=== PATIENT | female | born 1955 | race Caucasian/White ===

== ENCOUNTER 2016-10-26 12:32 | Inpatient (IN) | payer OTHER ==
[~2016-10-26] VITALS: Ht 172.7 cm; Wt 108.9 kg
--- NOTE | 2016-10-26 12:37 | NUR ---
TRIAGE; PT TO ED WITH HIGH BP. STATES WENT TO HER DOCTOR YESTERDAY AND ADDED A NEW MEDICINE YESTERDAY. STATES LATELY HER PRESSURES HAVE BEEN HIGHER. DENIES ANY CP/SOB. DENIES ANY NAUSEA OR LIGHTHEADEDNESS.
--- NOTE | 2016-10-26 13:41 | NUR ---
PT AMBULATORY TO ROOM 7
--- NOTE | 2016-10-26 13:47 | NUR ---
MEDICAL STUDENT AT BEDSIDE FOR EVAL.
[2016-10-26] MEDS ORDERED: LISINOPRIL-HCT1 EAC1 PO (14:04)
[2016-10-26] MEDS ORDERED: LISINOPRIL20 M1 PO (14:04)
[2016-10-26] MEDS ORDERED: AMLODIPINE BESYL5 M1 PO (14:05)
--- NOTE | 2016-10-26 14:38 | NUR ---
BLOOD DRAWN AND SENT TO THE LAB (2 SST,LAV,BLUE,PINK,[facility])
[2016-10-26 14:42] LABS: ABSOLUTE BASOPHIL COUNT 0.1 /CUMM (0.0-0.2); ABSOLUTE EOSINOPHIL COUNT 0.1 /CUMM (0.0-0.7); ABSOLUTE GRANULOCYTE CT 9.2 /CUMM (1.4-6.5); ABSOLUTE LYMPH COUNT 2.6 /CUMM (1.2-3.4); ABSOLUTE MONOCYTE COUNT 0.6 /CUMM (0.10-0.60); BASOPHIL % 0.4 % (0.0-2.0); EOSINOPHIL % 0.5 % (0-5); GRANULOCYTE % 73.7 % (42.2-75.2); HEMATOCRIT 39.2 % (37-47); MEAN CORPUSCULAR HGB 30.5 PG (27.0-31.0); MEAN CORPUSCULAR HGB CONC 34.2 G/DL (33.0-37.0); MEAN CORPUSCULAR VOLUME 89.2 FL (81.0-99.0); MEAN PLATELET VOLUME 8.3 FL (7.4-10.4); PLATELET COUNT 270 /CUMM (130-400); RBC DISTRIBUTION WIDTH 13.3 % (11.5-14.5); RED BLOOD CELL CT 4.39 /CUMM (4.20-5.40); WHITE BLOOD CELL COUNT 12.6 /CUMM (4.8-10.8)
--- NOTE | 2016-10-26 15:36 | NUR ---
DR. POTTS AT BEDSIDE TO DISCUSS POC.
--- NOTE | 2016-10-26 15:41 | ED GENERAL ADULT ---
History of Present Illness General Chief Complaint: General Adult Stated Complaint: HIGH BLOOD PRESSURE,FEELS FLUSHED,STARTED MED YEST Source: patient, family, old records Exam Limitations: no limitations Vital Signs & Intake/Output Vital Signs & Intake/Output Vital Signs Date Time Temp Pulse Resp B/P Pulse O2 O2 Flow FiO2 Ox Delivery Rate 10/26 1642 98.9 65 15 138/60 94 Room Air Room Air 10/26 1437 Room Air Room Air 10/26 1436 18 184/70 10/26 1236 97.7 64 16 190/77 97 Room Air Allergies Coded Allergies: No Known Allergies (10/26/16) Reconcile Medications Amlodipine Besylate 5 MG TABLET 1 TAB PO DAILY BP (Reported) Lisinopril 20 MG TABLET 40 MG PO EOD BP (Reported) Lisinopril/Hydrochlorothiazide (Lisinopril-Hctz 20-25 MG Tab) 20 MG-25 MG TABLET 2 TAB PO EOD BP (Reported) Triage Note: TRIAGE; PT TO ED WITH HIGH BP. STATES WENT TO HER DOCTOR YESTERDAY AND ADDED A NEW MEDICINE YESTERDAY. STATES LATELY HER PRESSURES HAVE BEEN HIGHER. DENIES ANY CP/SOB. DENIES ANY NAUSEA OR LIGHTHEADEDNESS. Triage Nurses Notes Reviewed? yes Onset: Just prior to arrival Duration: day(s):, constant, continues in ED Timing: recent history Injury Environment: home Severity: moderate No Modifying Factors: none LMP (ages 10-50): post menopausal : No Patient currently breastfeeds: No HPI: Several days prior to admission patient complains of frequent loose watery stool loss of appetite increasing weakness. Blood pressure was noted to be elevated amlodipine started yesterday. Prior to admission she still fill her blood pressure was elevated. She denies fever chills nausea vomiting abdominal pain chest pain cough shortness of breath headache dysuria rash bleeding. Past History Travel History Traveled to [place] past 21 day No Medical History Any Pertinent Medical History? see below for history Cardiovascular: hypertension Psychiatric: anxiety Surgical History Surgical History: non-contributory Psychosocial History What is your primary language Maltese Tobacco Use: Never used Family History Hx Contributory? No Review of Systems Review of Systems Constitutional: Reports: see HPI, weakness. EENTM: Reports: no symptoms. Respiratory: Reports: no symptoms. Cardiovascular: Reports: no symptoms. GI: Reports: see HPI, diarrhea. Genitourinary: Reports: no symptoms. Musculoskeletal: Reports: no symptoms. Skin: Reports: no symptoms. Neurological/Psychological: Reports: see HPI, anxiety. Hematologic/Endocrine: Reports: no symptoms. Immunologic/Allergic: Reports: no symptoms. All Other Systems: Reviewed and Negative Physical Exam Physical Exam General Appearance: well developed/nourished, alert, awake, anxious, mild distress, obese Head: atraumatic, normal appearance Eyes: Bilateral: normal appearance, PERRL, EOMI. Ears, Nose, Throat: normal pharynx, normal ENT inspection, hearing grossly normal Neck: normal inspection, supple, full range of motion, no midline tenderness Respiratory: normal breath sounds, chest non-tender, no respiratory distress, quiet respiration, lungs clear Cardiovascular: normal peripheral pulses, irregularly irregular, norml femoral pulses equa Peripheral Pulses: 4+ carotid (R), 4+ carotid (L) Gastrointestinal: normal bowel sounds, soft, non-tender, no organomegaly Back: normal inspection, normal range of motion Extremities: normal inspection, normal capillary refill, normal range of motion, no edema Neurologic/Psych: no motor/sensory deficits, awake, alert, oriented x 3, normal gait, corporation officer II-XII nml as tested Reflexes: 2+: bicep (R), bicep (L). Skin: intact, normal color, cyanosis Lymphatic: no anterior cervical bradford Core Measures ACS in differential dx? No CVA/TIA Diagnosis: No Severe Sepsis Present: No Septic Shock Present: No Progress Differential Diagnoses I considered the following diagnoses in my evaluation of the patient: Hypertension electrolyte abnormality gastroenteritis dehydration Plan of Care: Orders Procedure Date/time Status Regular Diet 10/26 D Active Patient Data 10/26 1559 Active OXYGEN SETUP (GEN) 10/26 1532 Active Saline Lock 10/26 1532 Active Admit to inpatient 10/26 1532 Active Vital Signs 10/26 1532 Active Activity/Ambulation 10/26 1532 Active Code Status 10/26 1532 Active Intake & Output 10/26 1439 Active URINALYSIS 10/26 1401 Complete TSH REFLEX 10/26 1401 Complete TROPONIN LEVEL 10/26 1401 Complete COMPREHENSIVE METABOLIC PANEL 10/26 1401 Complete CBC WITHOUT DIFFERENTIAL 10/26 1401 Complete EKG 10/26 1401 Active Laboratory Tests 10/26/16 1545: Urine Color STRAW, Urine Clarity CLEAR, Urine pH 6.0, Ur Specific [place] <= 1.005, Urine Protein NEG, Urine Ketones NEG, Urine Nitrite NEG, Urine Bilirubin NEG, Urine Urobilinogen 0.2, Ur Leukocyte Esterase NEG, Ur Microscopic SEDIMENT EXAMINED, Urine RBC RARE, Urine WBC RARE, Ur Epithelial Cells RARE, Urine Bacteria RARE H, Urine Hemoglobin MOD H, Urine Glucose NEG 10/26/16 1434: Anion Gap 13, Estimated GFR > 60, BUN/Creatinine Ratio 14.3, Glucose 152 H, Calcium 9.6, Total Bilirubin 1.9 H, AST 29, ALT 49, Alkaline Phosphatase 70, Troponin I < 0.01, Total Protein 7.7, Albumin 4.1, Globulin 3.6, Albumin/ Globulin Ratio 1.1, TSH &T3 &Free T4 Intrp 0.946, CBC w Diff NO MAN DIFF REQ, RBC 4.39, MCV 89.2, MCH 30.5, RDW 13.3, MPV 8.3, Gran % 73.7, Lymphocytes % 21.0 , Monocytes % 4.4, Eosinophils % 0.5, Basophils % 0.4, Absolute Granulocytes 9.2 H, Absolute Lymphocytes 2.6, Absolute Monocytes 0.6, Absolute Eosinophils 0.1, Absolute Basophils 0.1, PUBS MCHC 34.2 Initial ED EKG: normal axis, normal intervals, normal p-waves, normal QRS complex, nonspecific ST T wave chg Rhythm Strip: normal sinus rhythm Departure Departure Disposition: STILL A PATIENT Condition: Stable Clinical Impression Primary Impression: Hyponatremia syndrome Secondary Impressions: Anxiety Diarrhea Qualifiers: Diarrhea type: unspecified type Qualified Code: R19.7 - Diarrhea, unspecified Hypertension Qualifiers: Hypertension type: unspecified secondary hypertension Qualified Code: I15.9 - Secondary hypertension, unspecified Referrals: LANDEN LOWRY MD (PCP/Family) Departure Forms: Customer Survey General Discharge Information Admission Note Spoke With: MARIANO CHAPA MD Documentation of Exam: Documentation of any treatments & extenuating circumstances including Concerns Regarding Discharge (functional status, medication knowledge or non-compliance, living conditions, etc.) that warrant an admission rather than observation: serial lab exam IV hydration medication adjustment cardiac monitoring continuing care discharge planning Critical Care Note Critical Care Note Critical Care Time: non-applicable
--- NOTE | 2016-10-26 15:51 | NUR ---
URINE TRIO SENT TO LAB NOW.
--- NOTE | 2016-10-26 16:12 | NUR ---
PT MEDICATED WITH XANAX PER EMAR. TOLERATED WELL. PT EDUCATED ABOUT XANAX.
--- NOTE | 2016-10-26 16:31 | NUR ---
FOOD TRAY ORDERED FOR PT.
--- NOTE | 2016-10-26 16:35 | NUR ---
DR. CHAPA AT BEDSIDE FOR EVAL.
--- NOTE | 2016-10-26 16:35 | NUR ---
REPORT GIVEN TO AMER[facility] SPENCE.
--- NOTE | 2016-10-26 17:13 | History & Physical ---
See Addendum BOSSMAN WANG 10/26/16 1713: General Information and HPI MD Statement: I have seen and personally examined CARMELLA VILLA and documented this H&P. The patient is a 61 year old F who presented with a patient stated chief complaint of [facial flushing, anxiety and elevated blood pressure]. Source of Information: patient Exam Limitations: no limitations History of Present Illness: Mrs Orona is a 61-year-old lady with a PMH of HTN noncompliant on medication , peripheral vascular disease complicated with left lower extremity ulcer, anxiety who presents with complaints of facial flushing. She reports a long-standing history of elevated blood pressure, prescribed HCTZ and lisinopril for which she acknowledges being noncompliant on.during her recent visit to follow-up with her PCP from Dr. Lowry, SBP was noted to be in the 180s for which she was started on amlodipine 5 mg daily. She reports taking 2 doses of amlodipine and woke up this morning to find her face flushed. She also endorses significant amount of family stressors that are causing her excessive anxiety. ROS: She endorses intermittent headaches whenever her blood pressure is elevated , difficulty sleeping, decrease in oral intake over the past 10 days, 2 episodes of diarrhea, sadness, loss of interest in certain activities, guilty feeling, lack of energy and inability to concentrate. Allergies/Medications Allergies: Coded Allergies: No Known Allergies (10/26/16) Home Med list Amlodipine Besylate 5 MG TABLET 1 TAB PO DAILY BP (Reported) Lisinopril 20 MG TABLET 40 MG PO EOD BP (Reported) Lisinopril/Hydrochlorothiazide (Lisinopril-Hctz 20-25 MG Tab) 20 MG-25 MG TABLET 2 TAB PO EOD BP (Reported) Past History Travel History Traveled to [place] past 21 day No Medical History Cardiovascular: hypertension Psychiatric: anxiety Surgical History Surgical History: non-contributory Past Family/Social History Psychosocial History Where do you live? Home Who Do You Live With? spouse Services at Home: None Primary Language: Frisian Smoking Status: Never Smoked ETOH Use: denies use Review of Systems Review of Systems Constitutional: Reports: see HPI. EENTM: Reports: no symptoms. Cardiovascular: Reports: no symptoms. Respiratory: Reports: no symptoms. GI: Reports: see HPI. Genitourinary: Reports: no symptoms. Musculoskeletal: Reports: see HPI. Skin: Reports: no symptoms. Neurological/Psychological: Reports: see HPI. Exam & Diagnostic Data Last 24 Hrs of Vital Signs/I&O Vital Signs Date Time Temp Pulse Resp B/P Pulse O2 O2 Flow FiO2 Ox Delivery Rate 10/26 1757 97.9 60 16 115/76 96 Room Air 10/26 1642 98.9 65 15 138/60 94 Room Air Room Air 10/26 1437 Room Air Room Air 10/26 1436 18 184/70 10/26 1236 97.7 64 16 190/77 97 Room Air Intake & Output 10/26 1600 10/26 0800 10/26 0000 Intake Total 0 Output Total Balance 0 Intake, Oral 0 Physical Exam General Appearance Alert, Cooperative, SLighty anxious appearing Skin DIstal left leg appears to have chronic venous insufficency changes HEENT EOMI, Mucous Membr. moist/pink Cardiovascular Regular Rate, Normal S1, Normal S2 Lungs Clear to Auscultation, Normal Air Movement Abdomen Normal Bowel Sounds, Soft, No Tenderness Neurological Normal Speech, Normal Tone, Sensation Intact Extremities Normal Pulses, 1+ pitting edema BL LE Vascular Pulses Symmetrical Last 24 Hrs of Labs/Kevon: Laboratory Tests 10/26/16 1545: Urine Color STRAW, Urine Clarity CLEAR, Urine pH 6.0, Ur Specific [place] <= 1.005, Urine Protein NEG, Urine Ketones NEG, Urine Nitrite NEG, Urine Bilirubin NEG, Urine Urobilinogen 0.2, Ur Leukocyte Esterase NEG, Ur Microscopic SEDIMENT EXAMINED, Urine RBC RARE, Urine WBC RARE, Ur Epithelial Cells RARE, Urine Bacteria RARE H, Urine Hemoglobin MOD H, Urine Glucose NEG 10/26/16 1434: Anion Gap 13, Estimated GFR > 60, BUN/Creatinine Ratio 14.3, Glucose 152 H, Calcium 9.6, Total Bilirubin 1.9 H, AST 29, ALT 49, Alkaline Phosphatase 70, Troponin I < 0.01, Total Protein 7.7, Albumin 4.1, Globulin 3.6, Albumin/ Globulin Ratio 1.1, TSH &T3 &Free T4 Intrp 0.946, CBC w Diff NO MAN DIFF REQ, RBC 4.39, MCV 89.2, MCH 30.5, RDW 13.3, MPV 8.3, Gran % 73.7, Lymphocytes % 21.0 , Monocytes % 4.4, Eosinophils % 0.5, Basophils % 0.4, Absolute Granulocytes 9.2 H, Absolute Lymphocytes 2.6, Absolute Monocytes 0.6, Absolute Eosinophils 0.1, Absolute Basophils 0.1, PUBS MCHC 34.2 Diagnostic Data EKG Results Sinus tachycardia, HR 105. Multiform ventricular premature complexes. LVH with secondary repolarization of normality. OK interval 170. QTC 476 Assessment/Plan Assessment: 61-year-old lady with a PMH of HTN noncompliant on medication, peripheral vascular disease complicated with left lower extremity ulcer, anxiety who presents with complaints of facial flushing. Patient endorses significant amount of anxiety at baseline and noncompliance with her blood pressure regimen. VS on admission: BP 190/77, HR 64, RR 16, SPO2 97% on RA, T 97.7 Pertinent labs: WBC 12.6, H&H 13.6/39.2, platelets 270K, sodium 122, potassium 3.2, chloride 82, bicarbonate 27, BUN/CR 10/0.7, glucose 112 T bili: 1.9 Problem list: 1. Hypertensive urgency 2. Facial flushing 3. Hyponatremia 4. Hypokalemia 5. Hypochloremia 6. Anxiety 7. Peripheral vascular disease Plan: 1. Hypertensive urgency * Admit to general medicine floor * There appear to be some discrepancies between the patient's medication list and the medication claim history with regards to her antihypertensive regimen. She reports currently being on lisinopril 40 mg daily, HCTZ 50 mg daily and amlodipine 5 mg daily. Additionally, in the setting of medication noncompliance the patient may not be able to tolerate restarting all these medications at the current dose * Despite no antihypertensive administered since admission her blood pressure has dropped from SBP 190s to 115. This could likely be secondary to the 1 mg dose of alprazolam that she did received for anxiety * Will restart her on lisinopril 40 mg. we'll hold off amlodipine due to potential side effects of flushing and HCTZ due to potential cause of hyponatremia * Consider starting the patient on Lopressor if blood pressure remains uncontrolled with target BP <150/90 per JNC 8 guidelines 2. Hyponatremia * This could be secondary to thiazide use. Unlikely to be SIADH as patient is not on any medications that could cause this * We'll follow-up serum osmolality, urine lites * If serum osmolality is low, fluid restriction of 1000ml/24hr, repeat BEP Q12 3. Hypokalemia * Hypokalemia: Repleted with K Scott 60mEg X1. Follow-up magnesium and phosphorus levels and supplement as warranted 4. Hypochloremia * This may also be secondary to thiazide use * We'll follow-up repeat while holding off diuretics 5. Anxiety * PRN xanax for symptomatic control tonight * Psychiatry consult in the a.m. * Follow-up thyroid function studies 6. Peripheral vascular disease * Follow-up lipid profile in the a.m * Patient may benefit from statin if elevated ASCVD score * Patient may also benefit from aspirin 81 mg 7. Diet * Heart healthy diet 8. DVT prophylaxis * DVT prophylaxis: Lovenox 40 mg subcutaneous daily 9. CODE STATUS * Full code FOLLOW UP: * BEP at 2300 hrs. * Magnesium, phosphorus * Serum osmolality, urine lites * Lipid panel in the a.m. * Psychiatry consult in the a.m.: Progressive anxiety * Obtain records from patient's PCP to get baseline sodium, potassium As Ranked By This Provider Problem List: 1. Hypertensive urgency 2. Hyponatremia syndrome 3. Hypokalemia 4. Hypochloremia 5. Anxiety 6. PVD (peripheral vascular disease) Core Measures/Miscellaneous Acute Coronary Syndrome ACS Diagnosis: No Cerebrovascular Accident CVA/TIA Diagnosis: No Congestive Heart Failure CHF Diagnosis: No Venous Thromboembolism VTE Risk Factors: Age > 40 No [facility] VTE prophylaxis d/t: No contraindications No VTE Pharm Prophylaxis d/t: No contraindications VTE Diagnosis: No VTE Type: NONE VTE Confirmed by (Test): NONE Severe Sepsis Severe Sepsis Present: No Septic Shock Septic Shock Present: No Miscellaneous Documentation Attending Case Discussed With: MARIANO CHAPA MD Primary Care Physician: LANDEN LOWRY MD Patient sees these Specialists NA Level of Patient Care: General Medicine Resident Review Statement Resident Statement: examined this patient, discussed with internet marketing consultant, agreed with internet marketing consultant, reviewed EMR data (avail), discussed with nursing, reviewed images MARIANO CHAPA MD 10/26/163: Attending Review Statement Attending Statement Attending MD Statement: examined this patient, discuss w/resident/PA/STORE OPERATIONS SPECIALIST, agreed w/resident/PA/STORE OPERATIONS SPECIALIST, reviewed EMR data (avail) Attending Assessment/Plan: 61F admitted for hypertension and sodium 122. Patient reprots depression and severe anxiety for the past week with decreased PO intake and loose stools, had been on Lisinopril and HCTZ, started Amlodipine by her PCP yesterday. No other symptoms, neuro exam normal. Will check urine sodium and osmolaliaty, serum osmolality, urine creatinine, urine toxicology, give normal saline, hold HCTZ and Amlodipine, consider nephrology consult if no improvement. Speak with PCP and get full records and medications history. DVT PPx
[2016-10-26 17:57] VITALS: BP 115/76
--- NOTE | 2016-10-26 21:16 | Admission Certification ---
Admission Certification Certification Statement - As attending physician, I certify that at the time of - admission, based on clinical presentation, severity of - symptoms, need for further diagnostic testing and - therapeutic interventions, and risk of adverse outcomes - without in-hospital treatment, in my clinical assessment, - this patient requires an acute hospital stay for a minimum - of two nights or longer. I have also considered psychsocial - factors such as support system, advanced age, financial - issues, cognitive issues, and failed out-patient treatments, - past re-admission history, safety of patient, and lack of - compliance as applicable. Specific rationale supporting this admission is: Sodium 122, BP 190/90, questionable confusion
[2016-10-26 23:00] VITALS: BP 118/64
[2016-10-27 00:50] VITALS: BP 102/56
--- NOTE | 2016-10-27 07:54 | PN- Housestaff ---
ANDRE STEINER,VINNIE 10/27/16 0740: Subjective Follow-up For: Hyponatremia Hypokalemia Hypertensive urgency Tele-Events Since Last Visit: SB 50-65 Subjective: Pt c/o anxiety, but she slept well overnight. She didn't have any flushing sensation / headache. She denies chest pain/shortness of breath. She was not drinking much water at baseline, and she had HTCTZ. Review of Systems Constitutional: Denies: chills, fever, weakness. EENTM: Reports: no symptoms. Cardiovascular: Denies: chest pain, orthopena, palpitations, peripheral edema. Respiratory: Denies: cough, short of breath, wheezing. Gastrointestinal: Reports: no symptoms. Genitourinary: Reports: no symptoms. Musculoskeletal: Reports: no symptoms. Skin: Reports: lesions. Neurological/Psychological: Reports: anxiety. Denies: headache, numbness, tremors. Hematologic/Endocrine: Reports: no symptoms. Immunologic/Allergic: Reports: no symptoms. Objective Last 24 Hrs of Vital Signs/I&O Vital Signs Date Time Temp Pulse Resp B/P Pulse O2 O2 Flow FiO2 Ox Delivery Rate 10/26 2341 68 118/64 10/26 2300 99.0 72 18 118/64 96 Room Air 10/26 1757 97.9 60 16 115/76 96 Room Air 10/26 1642 98.9 65 15 138/60 94 Room Air Room Air 10/26 1437 Room Air Room Air 10/26 1436 18 184/70 10/26 1236 97.7 64 16 190/77 97 Room Air Intake & Output 10/27 0800 10/27 0000 10/26 1600 Intake Total 600 800 0 Output Total Balance 600 800 0 Intake, Oral 600 800 0 Patient 240 lb Weight Physical Exam General Appearance: Alert, Oriented X3, Cooperative, No Acute Distress Skin: bilateral multiple psoriatic skin lesions on arms, legs HEENT: Atraumatic, EOMI, Mucous Membr. moist/pink Neck: Supple, No JVD, No LAD, obese Lymphatic: Cervical nl Cardiovascular: Regular Rate, Normal S1, Normal S2, No Murmurs Lungs: Clear to Auscultation, Normal Air Movement Abdomen: Normal Bowel Sounds, Soft, No Tenderness Neurological: Normal Gait, Normal Speech, Strength at 5/5 X4 Ext, Normal Tone, Sensation Intact, Cranial Nerves 3-12 NL Extremities: No Edema, Normal Pulses, No Tenderness/Swelling Vascular: Normal Pulses, Pulses Symmetrical Current Medications: Current Medications Sig/Hugh Start time Last Medication Dose Route Stop Time Status Admin Acetaminophen 650 MG Q6P PRN 10/26 181 AC PO Alprazolam 0.5 MG 2200 PRN 10/26 220 AC PO 11/02 2159 Alprazolam 0 .STK-MED ONE 10/26 1607 DC PO Alprazolam 1 MG ONCE ONE 10/26 1515 DC 10/26 PO 10/26 1516 1612 Amlodipine Besylate 5 MG DAILY 10/27 1000 CAN PO Enoxaparin Sodium 40 MG DAILY 10/26 1812 AC 10/26 SC 2341 Hydrochlorothiazide 25 MG DAILY 10/27 1000 CAN PO Lisinopril 40 MG Q48H 10/26 220 AC PO Magnesium Oxide 800 MG ONE ONE 10/27 0700 DC PO 10/27 0701 Oxycodone/ 1 TAB Q6P PRN 10/26 181 AC Acetaminophen PO Oxycodone/ 2 TAB Q6P PRN 10/26 1815 AC Acetaminophen PO Potassium Chloride 60 MEQ ONCE ONE 10/26 1700 DC 10/26 PO 10/26 1701 1749 Sodium Chloride 1,000 ML BOLUS ONE 10/26 1545 DC 10/26 IV 10/26 1644 1628 Last 24 Hrs of Lab/Kevon Results Last 24 Hrs of Labs/Mics: Laboratory Tests 10/27/16 0610: Sodium Pending, Potassium Pending, Chloride Pending, Carbon Dioxide Pending, Anion Gap Pending, BUN Pending, Creatinine Pending, BUN/Creatinine Ratio Pending , Serum Osmolality Pending, Triglycerides Pending, Cholesterol Pending, LDL Cholesterol, Calc Pending, HDL Cholesterol Pending, Cholesterol/HDL Ratio Pending, TSH Pending, Free T4 Pending, CBC w Diff Pending, WBC Pending, RBC Pending, Hgb Pending, Hct Pending, MCV Pending, MCH Pending, RDW Pending, Plt Count Pending, MPV Pending, PUBS MCHC Pending 10/26/16 2259: Anion Gap 8, Estimated GFR 56 L, BUN/Creatinine Ratio 12.0 10/26/16 1545: Urine Color STRAW, Urine Clarity CLEAR, Urine pH 6.0, Ur Specific [place] <= 1.005, Urine Protein NEG, Urine Ketones NEG, Urine Nitrite NEG, Urine Bilirubin NEG, Urine Urobilinogen 0.2, Ur Leukocyte Esterase NEG, Ur Microscopic SEDIMENT EXAMINED, Urine RBC RARE, Urine WBC RARE, Ur Epithelial Cells RARE, Urine Bacteria RARE H, Urine Hemoglobin MOD H, Urine Glucose NEG 10/26/16 1545: Urine Opiates Screen < 100.00, Methadone Screen < 40, Barbiturate Screen < 60, Ur Phencyclidine Scrn < 6.00, Amphetamines Screen < 100, U Benzodiazepines Scrn < 85, Urine Cocaine Screen < 50, Urine Cannabis Screen < 5.00, Urine Osmolality 103 L, Ur Random Creatinine 12.0, Ur Random Sodium 25 L, Ur Random Potassium 4.1, Fraction Sodium Excret 1.2 H 10/26/16 1434: Anion Gap 13, Estimated GFR > 60, BUN/Creatinine Ratio 14.3, Glucose 152 H, Serum Osmolality 252 L, Calcium 9.6, Phosphorus 3.0, Magnesium 1.5 L, Total Bilirubin 1.9 H, AST 29, ALT 49, Alkaline Phosphatase 70, Troponin I < 0.01, Total Protein 7.7, Albumin 4.1, Globulin 3.6, Albumin/Globulin Ratio 1.1, TSH & T3 &Free T4 Intrp 0.946, CBC w Diff NO MAN DIFF REQ, RBC 4.39, MCV 89.2, MCH 30.5, RDW 13.3, MPV 8.3, Gran % 73.7, Lymphocytes % 21.0, Monocytes % 4.4, Eosinophils % 0.5, Basophils % 0.4, Absolute Granulocytes 9.2 H, Absolute Lymphocytes 2.6, Absolute Monocytes 0.6, Absolute Eosinophils 0.1, Absolute Basophils 0.1, PUBS MCHC 34.2 Lines/Diet/Fluids Lines: peripheral lines Assessment/Plan Assessment: 61-year-old lady with a PMH of HTN noncompliant on medication, peripheral vascular disease complicated with left lower extremity ulcer, anxiety who presents with complaints of facial flushing. Patient endorses significant amount of anxiety at baseline and noncompliance with her blood pressure regimen. 1. Hypertensive urgency: SBP was decreased to 110s after xanax/IV fluid. Continue po lisinopril, po HCTZ & amlodipine were held due to hyponatremia & vasodilation. 2. Hyponatremia * Hypotonic serum Osm: 252, Low urine Osm: 103, urine Na: 25 (> 20mEq), likely due to decreased oral intake / thiazide use. Unlikely to be SIADH, as Na improved from 122 to 124 after IV hydration. * will give 1L NS today. * will change to regular diet with liberazling Na intake. 3. Hypokalemia * K 3.5 improved to 4.3 after supplement. Mg 1.5 to 1.8. Continue Mg supplementation. 4. Anxiety * PRN xanax was ordered for anxiety, but pt needs long acting medication or SSRI. * Psychiatry consult was requested, will follow. * Thyroid function studies were normal. 7. Peripheral vascular disease * lipid profile shows low HDL 38 and normal LDL 94 * Will start aspirin Regular diet: liberalized sodium intake DVT prophylaxis: Lovenox 40 mg subcutaneous daily Full code Problem List: 1. Hyponatremia syndrome 2. Hypokalemia 3. PVD (peripheral vascular disease) 4. Anxiety Pain Ratin Pain Location: Headache Pain Goal: Pain 4 or less Pain Plan: tyrenol, percocet Tomorrow's Labs & Rationales: BEP - hyponatremia, hypokalemia DVT/Prophylaxis: pharmacological Discharge Plan Stable for Discharge? No MARIANO CHAPA MD 10/27/16 1234: Attending MD Review Statement Attending Statement Attending MD Statement: examined this patient, discuss w/resident/PA/[employer] GAME BOX PERSON, agreed w/resident/PA/[employer] G[employer] BOX PERSON, reviewed EMR data (avail) Attending Assessment/Plan: 61F admitted for hypertension and sodium 122. Patient reprots depression and severe anxiety for the past week with decreased PO intake and loose stools, had been on Lisinopril and HCTZ, started Amlodipine by her PCP yesterday. No other symptoms, neuro exam normal. After 1L NS, sodium increased to 124 today. Patient reports anxiety and no other complaints. She is eating better today. Urine osmolality is 130, urine sodium 25. 1. Hyponatremia 2. Hypokalemia 3. Poor PO intake 4. Anxiety/depression 5. Hypertensive urgency (resolved) Plan - Discontinue telemetry - Continue IV hydration - Nutrition consult - Psychiatry consult - Nephrology consult - May continue Lisinopril, will stop thiazide - DVT PPx - Anticipated discharge tomorrow
[2016-10-27 08:00] VITALS: BP 140/70
[2016-10-27 08:32] LABS: ABSOLUTE BASOPHIL COUNT 0.1 /CUMM (0.0-0.2); ABSOLUTE EOSINOPHIL COUNT 0.2 /CUMM (0.0-0.7); ABSOLUTE MONOCYTE COUNT 0.6 /CUMM (0.10-0.60); BASOPHIL % 0.6 % (0.0-2.0); EOSINOPHIL % 1.7 % (0-5); GRANULOCYTE % 61.8 % (42.2-75.2); HEMATOCRIT 36.6 % (37-47); MEAN CORPUSCULAR HGB 30.7 PG (27.0-31.0); MEAN CORPUSCULAR HGB CONC 34.1 G/DL (33.0-37.0); MEAN CORPUSCULAR VOLUME 90.1 FL (81.0-99.0); MEAN PLATELET VOLUME 9.2 FL (7.4-10.4); PLATELET COUNT 244 /CUMM (130-400); RBC DISTRIBUTION WIDTH 13.3 % (11.5-14.5); RED BLOOD CELL CT 4.06 /CUMM (4.20-5.40); WHITE BLOOD CELL COUNT 9.8 /CUMM (4.8-10.8)
[2016-10-27 12:29] VITALS: BP 144/80
--- NOTE | 2016-10-27 14:41 | Cons- Psychiatry ---
Psychiatric Consult Date of Consult: 10/27/16 Reason for Consult: "Generalized anxiety disorder, hypertensive urgency, she didn't use any psy meds before." History of Present Illness: 61 F to ED 10/26/16 1237 with reaction to new BP med, including flushing and hypertension. No prior treatment for anxiety or depression, nor exposure to psychotropic medications. In no apparent distress, but she scales her anxiety as very high. Allergies: Coded Allergies: No Known Allergies (10/26/16) Current Medications: Current Medications Sig/Hugh Start time Last Medication Dose Route Stop Time Status Admin Acetaminophen 650 MG Q6P PRN 10/26 1815 AC PO Alprazolam 0.5 MG 2200 PRN 10/26 2200 AC PO 11/02 2159 Alprazolam 0 .STK-MED ONE 10/26 1607 DC PO Alprazolam 1 MG ONCE ONE 10/26 1515 DC 10/26 PO 10/26 1516 1612 Amlodipine Besylate 5 MG DAILY 10/27 1000 CAN PO Aspirin 81 MG DAILY 10/27 1027 AC 10/27 PO 1233 Enoxaparin Sodium 40 MG DAILY 10/26 1812 AC 10/27 SC 0954 Gabapentin 100 MG Q8P PRN 10/27 1430 AC PO Hydrochlorothiazide 25 MG DAILY 10/27 1000 CAN PO Lisinopril 40 MG DAILY 10/27 1100 AC 10/27 PO 1232 Lisinopril 40 MG Q48H 10/26 2200 DC PO Magnesium Oxide 400 MG BID 10/27 2200 AC PO Magnesium Oxide 800 MG ONE ONE 10/27 0700 DC 10/27 PO 10/27 0701 0947 Oxycodone/ 1 TAB Q6P PRN 10/26 1815 AC Acetaminophen PO Oxycodone/ 2 TAB Q6P PRN 10/26 1815 AC Acetaminophen PO Potassium Chloride 20 MEQ BID 10/27 1000 DC 10/27 PO 0947 Potassium Chloride 60 MEQ ONCE ONE 10/26 1700 DC 10/26 PO 10/26 1701 1749 Sodium Chloride 1,000 ML Q13H 10/27 0930 AC 10/27 IV 10/27 2229 0948 Sodium Chloride 1,000 ML BOLUS ONE 10/26 1545 DC 10/26 IV 10/26 1644 1628 Past History Past Medical History EENT: NONE Cardiovascular: hypertension Respiratory: NONE Gastrointestinal: NONE Hepatic: NONE Renal: NONE Musculoskeletal: osteoarthritis Psychiatric: NONE (Denies) Endocrine: NONE Blood Disorders: NONE Cancer(s): NONE HOSPICE EXECUTIVE DIRECTOR/Reproductive: NONE Past Surgical History Surgical History: non-contributory Psychosocial History Strengths/Capabilities: Wants psychiatry care, but unable to afford it. Psychiatric Treatment History Psych Treatment Psychiatric Treatment No (Denies) Risk Factors: high anxiety/distress Substance Use/Abuse History Drug Use/Abuse Substances Used/Abused No (Denies) Assessment/Plan Mental Status Mental Status Exam: The patient is alert, oriented, calm and conversational, but initially guarded and suspicious with most answers circumstantial. A+OX3. Denies AVTH, presents no letitia delusions She reports that she is mostly adherent to her PCP medication orders, missing a dose "sometimes." Sleeps 6-7 hours with nocturia X 2-3X, due to "water pill," which she takes in the morning. Appetite intact. She denies any psychiatric diagnosis, treatment or hospitalization She denies any use of street drugs and reports rare alcohol. Denies racing thoughts that she cannot control or with frequent topic/content changes. Denies impulsive behavior such as shopping or gambling. Denies any periods of not requiring sleep. Reports depressive symptoms as 8/10, anxiety as 10/10; 10/10 would be the most severe. Helplessness? - "Sometimes;" hopelessness? - "I'm trying not to go there;" worthlessness? - "Sometimes." Her affect is not congruent with her stated mood, as she remains calm and conversational. The patient refers to an event in her past, perhaps years ago, that continues to trouble her. She refuses to elaborate, but sees this as the main source of her anxiety and depression. Denies SI/HI, and denies any suicide attempt. Lab Results: Laboratory Tests 10/27 10/26 0610 2259 Chemistry Sodium (137 - 145 mmol/L) 124 L 123 L Potassium (3.5 - 5.1 mmol/L) 4.3 3.5 Chloride (98 - 107 mmol/L) 88 L 85 L Carbon Dioxide (22 - 30 mmol/L) 28 30 Anion Gap (5 - 16) 9 8 BUN (7 - 17 mg/dL) 15 12 Creatinine (0.5 - 1.0 mg/dL) 0.8 1.0 Estimated GFR (>60 ml/min) > 60 56 L BUN/Creatinine Ratio (7 - 25 %) 18.8 12.0 Serum Osmolality (285 - 295 MOSM/KG) 267 L Magnesium (1.6 - 2.3 mg/dL) 1.8 Triglycerides (<150 mg/dL) 131 Cholesterol (<200 MG/DL) 158 LDL Cholesterol, Calc (65 - 129 mg/dL) 94 HDL Cholesterol (40 - 60 mg/dL) 38 L Cholesterol/HDL Ratio (0.00 - 4.23 %) 4 TSH (0.270 - 4.200 uIU/mL) 1.740 Free T4 (0.78 - 2.44 ng/dL) 1.46 Hematology CBC w Diff NO MAN DIFF REQ WBC (4.8 - 10.8 /CUMM) 9.8 RBC (4.20 - 5.40 /CUMM) 4.06 L Hgb (12.0 - 16.0 G/DL) 12.5 Hct (37 - 47 %) 36.6 L MCV (81.0 - 99.0 FL) 90.1 MCH (27.0 - 31.0 PG) 30.7 RDW (11.5 - 14.5 %) 13.3 Plt Count (130 - 400 /CUMM) 244 MPV (7.4 - 10.4 FL) 9.2 Gran % (42.2 - 75.2 %) 61.8 Lymphocytes % (20.5 - 51.1 %) 30.3 Monocytes % (1.7 - 9.3 %) 5.6 Eosinophils % (0 - 5 %) 1.7 Basophils % (0.0 - 2.0 %) 0.6 Absolute Granulocytes (1.4 - 6.5 /CUMM) 6.0 Absolute Lymphocytes (1.2 - 3.4 /CUMM) 3.0 Absolute Monocytes (0.10 - 0.60 /CUMM) 0.6 Absolute Eosinophils (0.0 - 0.7 /CUMM) 0.2 Absolute Basophils (0.0 - 0.2 /CUMM) 0.1 PUBS MCHC (33.0 - 37.0 G/DL) 34.1 10/26 10/26 1545 1545 Toxicology Urine Opiates Screen (>2000 NG/ML) < 100.00 Methadone Screen (>300 NG/ML) < 40 Barbiturate Screen (>200 NG/ML) < 60 Ur Phencyclidine Scrn (>25 NG/ML) < 6.00 Amphetamines Screen (>1000 NG/ML) < 100 U Benzodiazepines Scrn (>200 NG/ML) < 85 Urine Cocaine Screen (>300 NG/ML) < 50 Urine Cannabis Screen (>50 NG/ML) < 5.00 Urines Urine Color (YEL,AMB,STR) STRAW Urine Clarity (CLEAR) CLEAR Urine pH (5.0 - 8.0) 6.0 Ur Specific [place] (1.001 - 1.035) <= 1.005 Urine Protein (NEG,<30 MG/DL) NEG Urine Ketones (NEG) NEG Urine Nitrite (NEG) NEG Urine Bilirubin (NEG) NEG Urine Urobilinogen (0.1 - 1.0 EU/dl) 0.2 Ur Leukocyte Esterase (NEG) NEG Ur Microscopic SEDIMENT EXAMINED Urine RBC (0 - 5 /HPF) RARE Urine WBC (0 - 2 /HPF) RARE Ur Epithelial Cells (NONE,FEW) RARE Urine Bacteria (NEG/NONE) RARE H Urine Hemoglobin (NEG) MOD H Urine Osmolality (300 - 1000 MOSM/KG) 103 L Ur Random Creatinine (mg/dL) 12.0 Ur Random Sodium (30 - 90 mmol/L) 25 L Ur Random Potassium (mmol/L) 4.1 Fraction Sodium Excret (<1% %) 1.2 H Urine Glucose (N MG/DL) NEG 10/26 1434 Chemistry Sodium (137 - 145 mmol/L) 122 L Potassium (3.5 - 5.1 mmol/L) 3.2 L Chloride (98 - 107 mmol/L) 82 L Carbon Dioxide (22 - 30 mmol/L) 27 Anion Gap (5 - 16) 13 BUN (7 - 17 mg/dL) 10 Creatinine (0.5 - 1.0 mg/dL) 0.7 Estimated GFR (>60 ml/min) > 60 BUN/Creatinine Ratio (7 - 25 %) 14.3 Glucose (65 - 99 mg/dL) 152 H Serum Osmolality (285 - 295 MOSM/KG) 252 L Calcium (8.4 - 10.2 mg/dL) 9.6 Phosphorus (2.5 - 4.5 mg/dL) 3.0 Magnesium (1.6 - 2.3 mg/dL) 1.5 L Total Bilirubin (0.2 - 1.3 mg/dL) 1.9 H AST (14 - 36 U/L) 29 ALT (9 - 52 U/L) 49 Alkaline Phosphatase (<127 U/L) 70 Troponin I (< 0.11 ng/ml) < 0.01 Total Protein (6.3 - 8.2 g/dL) 7.7 Albumin (3.5 - 5.0 g/dL) 4.1 Globulin (1.9 - 4.2 gm/dL) 3.6 Albumin/Globulin Ratio (1.1 - 2.2 %) 1.1 TSH &T3 &Free T4 Intrp (0.270 - 4.20 uIU/mL) 0.946 Hematology CBC w Diff NO MAN DIFF REQ WBC (4.8 - 10.8 /CUMM) 12.6 H RBC (4.20 - 5.40 /CUMM) 4.39 Hgb (12.0 - 16.0 G/DL) 13.4 Hct (37 - 47 %) 39.2 MCV (81.0 - 99.0 FL) 89.2 MCH (27.0 - 31.0 PG) 30.5 RDW (11.5 - 14.5 %) 13.3 Plt Count (130 - 400 /CUMM) 270 MPV (7.4 - 10.4 FL) 8.3 Gran % (42.2 - 75.2 %) 73.7 Lymphocytes % (20.5 - 51.1 %) 21.0 Monocytes % (1.7 - 9.3 %) 4.4 Eosinophils % (0 - 5 %) 0.5 Basophils % (0.0 - 2.0 %) 0.4 Absolute Granulocytes (1.4 - 6.5 /CUMM) 9.2 H Absolute Lymphocytes (1.2 - 3.4 /CUMM) 2.6 Absolute Monocytes (0.10 - 0.60 /CUMM) 0.6 Absolute Eosinophils (0.0 - 0.7 /CUMM) 0.1 Absolute Basophils (0.0 - 0.2 /CUMM) 0.1 PUBS MCHC (33.0 - 37.0 G/DL) 34.2 Diffential Diagnosis: Anxiety d/o NOS Depressive d/o NOS Impression: The patient is asking for help with depression and anxiety, but is concerned that the cost may prevent her from following through. Her spouse is advocating to have her discharged today, and is concerned about financial obligations. She lives at home with her spouse and daughter, age 23. The spouse has retired from [email or web address] and has a small pension, per her case management assistant. 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 They had previously been covered on the spouse's work-provided insurance. She would benefit from OPS for evaluation of depression and anxiety. There is an event in her past, which she will not discuss today, that is causing high levels of guilt and remorse. She seems relieved to discuss how she may have neglected her feelings and genuinely interested in the idea of therapy. She is not in any apparent distress. Provisional Treatment Plan: 1. Poor insurance coverage and financial stressors may prevent adequate followup for medical and psychiatic problems. Please ask social work and the recruitment specialist to explore coverage by [employer] ([employer]) or other insurance. 2. The patient needs a referral to Outpatient Psychiatry for evaluation and treatment of depression and anxiety. We will make an appointment for her as she nears discharge. Please encourage her to consider this option. 3. No SSRIs/SNRIs until hyponatremia resolved and cardiology has commented on the appropriateness of these medications. Last EKG 10/26/16 Sinus Tachycardia 105 bpm, PVC X 1, ?block/APCs, QTc 476 mS. These medications can cause or worsen hyponatemia or QTc prolongation. 4. After review with pharmacy, I will start gabapentin 100 mg PO 3X/day, as needed, for anxiety, an off-label use. R/B/SE reviewed with the patient. 5. Please minimize use of alprazolam, currently at 1 mg PO at 2200. Consider lowering this to 0.5 mg PO daily as needed for anxiety. We will continue to follow. Thank-you for asking us to contribute to Karla's care. Harrison Ronquillo APRN, Pager [phone]
--- NOTE | 2016-10-27 15:51 | Cons- Nephrology ---
General Information and HPI Consulting Request Date of Consult: 10/27/16 Requested By: MARIANO CHAPA MD Reason for Consult: Hyponatremia Source of Information: patient Exam Limitations: no limitations History of Present Illness: The patient is a 61-year-old woman with past medical history most significant for baseline normal renal function hypertension who presents with feeling off. The patient was in her usual state of health prior to the last couple weeks when she reports that she began feeling not quite right. A few days ago, she went to see her primary care doctor who noted that her systolic blood pressures in the 180s. He added amlodipine to her regimen which already included lisinopril and hydrochlorothiazide. Her symptoms which were nonspecific and included facial flushing continued and she ultimately presented to the emergency room. On presentation, her blood pressure was 190/77. She was found on labs to have a sodium of 122, potassium 3.2, bicarbonate 27, creatinine 0.7. Her serum osmolality was low at 252. Other lab work notable for TSH 1.740. Uosm 103. FENa 1.2%. Amlodipine and lisinopril were continued. HCTZ stopped. She was given benzo's (thought to have some degree of anxiety). BP now 144/80. She was given IV NS - currently at 75cc/hr (unclear how much she had gotten otherwise) and 80meq KCl. Currently Na 124, K 4.3. Patient reports feeling OK now. Aching to the patient more, does sound like she drinks a decent amount of tea and coffee although says she does not drink a lot of water. She reports that she has been told to restrict him on sodium that she takes in. She says that she had an episode of hypokalemia in the setting of diarrhea a few years ago. She does not remember whether or not there is an issue with her sodium. Of note , she had 2 episodes of diarrhea at home. Allergies/Medications Allergies: Coded Allergies: No Known Allergies (10/26/16) Home Med List: Amlodipine Besylate 5 MG TABLET 1 TAB PO DAILY BP (Reported) Lisinopril 20 MG TABLET 40 MG PO EOD BP (Reported) Lisinopril/Hydrochlorothiazide (Lisinopril-Hctz 20-25 MG Tab) 20 MG-25 MG TABLET 2 TAB PO EOD BP (Reported) Current Medications: Current Medications Sig/Hugh Start time Last Medication Dose Route Stop Time Status Admin Acetaminophen 650 MG Q6P PRN 10/26 1815 AC PO Alprazolam 0.5 MG 2200 PRN 10/26 2200 AC PO 11/02 2159 Alprazolam 0 .STK-MED ONE 10/26 1607 DC PO Amlodipine Besylate 5 MG DAILY 10/27 1000 CAN PO Aspirin 81 MG DAILY 10/27 1027 AC 10/27 PO 1233 Enoxaparin Sodium 40 MG DAILY 10/26 1812 AC 10/27 SC 0954 Gabapentin 100 MG Q8P PRN 10/27 1430 AC PO Hydrochlorothiazide 25 MG DAILY 10/27 1000 CAN PO Lisinopril 40 MG DAILY 10/27 1100 AC 10/27 PO 1232 Lisinopril 40 MG Q48H 10/26 2200 DC PO Magnesium Oxide 400 MG BID 10/27 2200 AC PO Magnesium Oxide 800 MG ONE ONE 10/27 0700 DC 10/27 PO 10/27 0701 0947 Oxycodone/ 1 TAB Q6P PRN 10/26 1815 AC Acetaminophen PO Oxycodone/ 2 TAB Q6P PRN 10/26 1815 AC Acetaminophen PO Potassium Chloride 20 MEQ BID 10/27 1000 DC 10/27 PO 0947 Potassium Chloride 60 MEQ ONCE ONE 10/26 1700 DC 10/26 PO 10/26 1701 1749 Sodium Chloride 1,000 ML Q13H 10/27 0930 AC 10/27 IV 10/27 2229 0948 Sodium Chloride 1,000 ML BOLUS ONE 10/26 1545 DC 10/26 IV 10/26 1644 1628 Review of Systems Review of Systems: Complete 14 point ROS neg except as per HPI. Past History Travel History Traveled to [place] past 21 day No Medical History EENT: NONE Cardiovascular: hypertension Respiratory: NONE Gastrointestinal: NONE Hepatic: NONE Renal: NONE Musculoskeletal: osteoarthritis Psychiatric: NONE Endocrine: NONE Blood Disorders: NONE Cancer(s): NONE CUTTER BARREL DRUM/Reproductive: NONE Surgical History Surgical History: non-contributory Psychosocial History Where Do You Live? Home Who Do You Live With? spouse Services at Home: None Primary Language: R[place] Smoking Status: Never Smoked ETOH Use: denies use Exam & Diagnostic Data Vital Signs and I&O Vital Signs Date Time Temp Pulse Resp B/P Pulse O2 O2 Flow FiO2 Ox Delivery Rate 10/27 1232 144/80 10/27 1229 67 144/80 94 Room Air 10/27 0800 98.0 70 18 140/70 93 Room Air 10/26 2341 68 118/64 10/26 2300 99.0 72 18 118/64 96 Room Air 10/26 1757 97.9 60 16 115/76 96 Room Air 10/26 1642 98.9 65 15 138/60 94 Room Air Room Air Intake & Output 10/27 1600 10/27 0400 10/26 04010/25 0400 Intake Total 1695 800 0 Output Total Balance 1695 800 0 Intake, IV 375 Intake, Oral 1320 800 0 Patient 240 lb 240 lb Weight Physical Exam: Gen - NAD Head - NCAT Eyes - EOMI, anicteric sclera Mouth - tongue not dry Neck - supple CV - RRR Chest - clear Abd - soft, nontender Upper ext - no edema Lower ext - no edema Skin - no rash Neuro - AOX3 Results Pertinent Lab Results: Laboratory Tests 10/27 10/26 0610 2259 Chemistry Sodium (137 - 145 mmol/L) 124 L 123 L Potassium (3.5 - 5.1 mmol/L) 4.3 3.5 Chloride (98 - 107 mmol/L) 88 L 85 L Carbon Dioxide (22 - 30 mmol/L) 28 30 Anion Gap (5 - 16) 9 8 BUN (7 - 17 mg/dL) 15 12 Creatinine (0.5 - 1.0 mg/dL) 0.8 1.0 Estimated GFR (>60 ml/min) > 60 56 L BUN/Creatinine Ratio (7 - 25 %) 18.8 12.0 Serum Osmolality (285 - 295 MOSM/KG) 267 L Magnesium (1.6 - 2.3 mg/dL) 1.8 Triglycerides (<150 mg/dL) 131 Cholesterol (<200 MG/DL) 158 LDL Cholesterol, Calc (65 - 129 mg/dL) 94 HDL Cholesterol (40 - 60 mg/dL) 38 L Cholesterol/HDL Ratio (0.00 - 4.23 %) 4 TSH (0.270 - 4.200 uIU/mL) 1.740 Free T4 (0.78 - 2.44 ng/dL) 1.46 Hematology CBC w Diff NO MAN DIFF REQ WBC (4.8 - 10.8 /CUMM) 9.8 RBC (4.20 - 5.40 /CUMM) 4.06 L Hgb (12.0 - 16.0 G/DL) 12.5 Hct (37 - 47 %) 36.6 L MCV (81.0 - 99.0 FL) 90.1 MCH (27.0 - 31.0 PG) 30.7 RDW (11.5 - 14.5 %) 13.3 Plt Count (130 - 400 /CUMM) 244 MPV (7.4 - 10.4 FL) 9.2 Gran % (42.2 - 75.2 %) 61.8 Lymphocytes % (20.5 - 51.1 %) 30.3 Monocytes % (1.7 - 9.3 %) 5.6 Eosinophils % (0 - 5 %) 1.7 Basophils % (0.0 - 2.0 %) 0.6 Absolute Granulocytes (1.4 - 6.5 /CUMM) 6.0 Absolute Lymphocytes (1.2 - 3.4 /CUMM) 3.0 Absolute Monocytes (0.10 - 0.60 /CUMM) 0.6 Absolute Eosinophils (0.0 - 0.7 /CUMM) 0.2 Absolute Basophils (0.0 - 0.2 /CUMM) 0.1 PUBS MCHC (33.0 - 37.0 G/DL) 34.1 10/26 10/26 1545 1545 Toxicology Urine Opiates Screen (>2000 NG/ML) < 100.00 Methadone Screen (>300 NG/ML) < 40 Barbiturate Screen (>200 NG/ML) < 60 Ur Phencyclidine Scrn (>25 NG/ML) < 6.00 Amphetamines Screen (>1000 NG/ML) < 100 U Benzodiazepines Scrn (>200 NG/ML) < 85 Urine Cocaine Screen (>300 NG/ML) < 50 Urine Cannabis Screen (>50 NG/ML) < 5.00 Urines Urine Color (YEL,AMB,STR) STRAW Urine Clarity (CLEAR) CLEAR Urine pH (5.0 - 8.0) 6.0 Ur Specific [place] (1.001 - 1.035) <= 1.005 Urine Protein (NEG,<30 MG/DL) NEG Urine Ketones (NEG) NEG Urine Nitrite (NEG) NEG Urine Bilirubin (NEG) NEG Urine Urobilinogen (0.1 - 1.0 EU/dl) 0.2 Ur Leukocyte Esterase (NEG) NEG Ur Microscopic SEDIMENT EXAMINED Urine RBC (0 - 5 /HPF) RARE Urine WBC (0 - 2 /HPF) RARE Ur Epithelial Cells (NONE,FEW) RARE Urine Bacteria (NEG/NONE) RARE H Urine Hemoglobin (NEG) MOD H Urine Osmolality (300 - 1000 MOSM/KG) 103 L Ur Random Creatinine (mg/dL) 12.0 Ur Random Sodium (30 - 90 mmol/L) 25 L Ur Random Potassium (mmol/L) 4.1 Fraction Sodium Excret (<1% %) 1.2 H Urine Glucose (N MG/DL) NEG 10/26 1434 Chemistry Sodium (137 - 145 mmol/L) 122 L Potassium (3.5 - 5.1 mmol/L) 3.2 L Chloride (98 - 107 mmol/L) 82 L Carbon Dioxide (22 - 30 mmol/L) 27 Anion Gap (5 - 16) 13 BUN (7 - 17 mg/dL) 10 Creatinine (0.5 - 1.0 mg/dL) 0.7 Estimated GFR (>60 ml/min) > 60 BUN/Creatinine Ratio (7 - 25 %) 14.3 Glucose (65 - 99 mg/dL) 152 H Serum Osmolality (285 - 295 MOSM/KG) 252 L Calcium (8.4 - 10.2 mg/dL) 9.6 Phosphorus (2.5 - 4.5 mg/dL) 3.0 Magnesium (1.6 - 2.3 mg/dL) 1.5 L Total Bilirubin (0.2 - 1.3 mg/dL) 1.9 H AST (14 - 36 U/L) 29 ALT (9 - 52 U/L) 49 Alkaline Phosphatase (<127 U/L) 70 Troponin I (< 0.11 ng/ml) < 0.01 Total Protein (6.3 - 8.2 g/dL) 7.7 Albumin (3.5 - 5.0 g/dL) 4.1 Globulin (1.9 - 4.2 gm/dL) 3.6 Albumin/Globulin Ratio (1.1 - 2.2 %) 1.1 TSH &T3 &Free T4 Intrp (0.270 - 4.20 uIU/mL) 0.946 Hematology CBC w Diff NO MAN DIFF REQ WBC (4.8 - 10.8 /CUMM) 12.6 H RBC (4.20 - 5.40 /CUMM) 4.39 Hgb (12.0 - 16.0 G/DL) 13.4 Hct (37 - 47 %) 39.2 MCV (81.0 - 99.0 FL) 89.2 MCH (27.0 - 31.0 PG) 30.5 RDW (11.5 - 14.5 %) 13.3 Plt Count (130 - 400 /CUMM) 270 MPV (7.4 - 10.4 FL) 8.3 Gran % (42.2 - 75.2 %) 73.7 Lymphocytes % (20.5 - 51.1 %) 21.0 Monocytes % (1.7 - 9.3 %) 4.4 Eosinophils % (0 - 5 %) 0.5 Basophils % (0.0 - 2.0 %) 0.4 Absolute Granulocytes (1.4 - 6.5 /CUMM) 9.2 H Absolute Lymphocytes (1.2 - 3.4 /CUMM) 2.6 Absolute Monocytes (0.10 - 0.60 /CUMM) 0.6 Absolute Eosinophils (0.0 - 0.7 /CUMM) 0.1 Absolute Basophils (0.0 - 0.2 /CUMM) 0.1 PUBS MCHC (33.0 - 37.0 G/DL) 34.2 Imaging/Other Studies: No imaging Assessment/Plan Assessment/Recommendations Assessment: Hyponatremia - Hypotonic hyponatremia. Appears euvolemic on exam. Urine osm is low but not maximally dilute. 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 Labs suggest that she should be able to correct this with fluid restriction. Should check AM cortisol to be complete and chest x-ray to rule out lung malignancy. HTN - Currently well controlled. Hypokalemia is at least in large part 2/2 diuretic. Although given that it was out of proportion, would evaluate for renovascular disease and primary hyperaldosteronism. Recommendations: -OK to cont IVF but would stop after current bag finishes -Would stop HCTZ indefinitely and list as allergy -1L fluid restriction while here to more quickly improve Na - this can be liberalized to 2L/day on discharge -Goal Na correction 6-8meq/day -Would check chest x-ray -Would check renal U/S with doppler -Would check renin, aldosterone, and AM cortisol -Would check Uosm tomorrow AM -OK to cont amlodipine and lisinopril as you are - goal BP 120/80 -From a renal standpoint, OK to d/c once Na>130 - patient should have f/u labs within 1 week of discharge - can f/u with PCP although if ?'s arise, she should come see me in the office ([address] in [place]) Please call [phone] with ?'s
[2016-10-27 17:22] VITALS: BP 130/70
[2016-10-27 22:43] VITALS: BP 142/80
--- NOTE | 2016-10-27 23:57 | RADIOLOGY REPORT ---
EXAMINATION: XR CHEST CLINICAL INFORMATION: Hyponatremia. Concern for lung mass. COMPARISON: None TECHNIQUE: 2 views of the chest were obtained. FINDINGS: Lungs are clear. No pulmonary vascular congestion. No infiltrate or pleural effusion. The heart size is normal. The cardiac and mediastinal contours are normal. There are multilevel degenerative changes of dorsal spine. IMPRESSION: Unremarkable examination.
[2016-10-28 07:23] VITALS: BP 150/92
--- NOTE | 2016-10-28 07:23 | PN- Housestaff ---
ANDRE STEINER,VINNIE 10/28/16 0723: Subjective Follow-up For: Hyponatremia Anxiety Complaints: anxiety Subjective: Pt was transferred from [facility] to . She's NPO for Renal artery US. She was restless c/o anxiety. She didn't take gabapentin overnight as she didn't try a new medication. No chest pain, shortness of breath, abdominal pain, n/v. No headache. Review of Systems Constitutional: Denies: chills, fever, weakness. EENTM: Reports: no symptoms. Cardiovascular: Denies: chest pain, orthopena, palpitations, peripheral edema. Respiratory: Denies: cough, short of breath, sputum production, wheezing. Gastrointestinal: Reports: no symptoms. Genitourinary: Reports: no symptoms. Musculoskeletal: Reports: no symptoms. Skin: Reports: see HPI, change in skin color, lesions. Neurological/Psychological: Reports: anxiety, depressed. Hematologic/Endocrine: Reports: no symptoms. Immunologic/Allergic: Reports: no symptoms. Objective Last 24 Hrs of Vital Signs/I&O Vital Signs Date Time Temp Pulse Resp B/P Pulse O2 O2 Flow FiO2 Ox Delivery Rate 10/28 0723 97.7 78 20 150/92 96 Room Air 04/ 2243 98.5 70 20 142/80 94 Room Air 04/ 1722 98.5 63 20 130/70 95 Room Air 04/05 1232 144/80 04/05 1229 67 144/80 94 Room Air Intake & Output 10/28 1600 04/06 0800 04/06 0000 Intake Total 480 Output Total Balance 480 Intake, Oral 480 Physical Exam General Appearance: Alert, Oriented X3, Cooperative, No Acute Distress Skin: psoriatic changes HEENT: Atraumatic, PERRLA, EOMI, dry mouth Neck: Supple, No JVD, No LAD Lymphatic: Cervical nl Cardiovascular: Regular Rate, Normal S1, Normal S2, No Murmurs Lungs: Clear to Auscultation, Normal Air Movement Abdomen: Normal Bowel Sounds, Soft, No Tenderness Neurological: Normal Speech, Strength at 5/5 X4 Ext, Normal Tone, Sensation Intact, Cranial Nerves 3-12 NL Extremities: No Edema, Normal Pulses Vascular: Normal Pulses, Pulses Symmetrical Current Medications: Current Medications Sig/Hugh Start time Last Medication Dose Route Stop Time Status Admin Acetaminophen 650 MG Q6P PRN 10/26 1815 AC PO Alprazolam 0.5 MG DAILY NEEDED PRN 10/27 1615 AC PO 11/03 1600 Alprazolam 0.5 MG 2200 PRN 10/26 220 DC PO 11/02 2159 Aspirin 81 MG DAILY 10/27 1027 AC 10/27 PO 1233 Enoxaparin Sodium 40 MG DAILY 10/26 181 AC 10/27 SC 0954 Gabapentin 100 MG Q8P PRN 10/27 1430 AC PO Lisinopril 40 MG DAILY 10/27 1100 AC 10/27 PO 1232 Lisinopril 40 MG Q48H 10/26 220 DC PO Magnesium Oxide 400 MG BID 10/27 220 AC 10/27 PO 2145 Oxycodone/ 1 TAB Q6P PRN 10/26 181 AC Acetaminophen PO Oxycodone/ 2 TAB Q6P PRN 10/26 181 AC Acetaminophen PO Potassium Chloride 20 MEQ BID 10/27 1000 DC 10/27 PO 0947 Sodium Chloride 1,000 ML Q13H 10/27 0930 DC 10/27 IV 10/27 2229 0948 Last 24 Hrs of Lab/Kevon Results Last 24 Hrs of Labs/Mics: Laboratory Tests 10/28/16 0700: Anion Gap 6, Estimated GFR > 60, BUN/Creatinine Ratio 20.0, Magnesium 2.2, Cortisol AM Sample Pending 10/28/16 0700: Renin Pending, Aldosterone Pending 10/28/16 0250: Urine Osmolality 167 L Lines/Diet/Fluids Lines: peripheral lines Assessment/Plan Assessment: 61-year-old lady with a PMH of HTN noncompliant on medication, peripheral vascular disease complicated with left lower extremity ulcer, anxiety who presents with complaints of facial flushing. Patient endorses significant amount of anxiety at baseline and noncompliance with her blood pressure regimen. 1. Hypertensive urgency: SBP was decreased to 110s after xanax/IV fluid. Continue po lisinopril, po HCTZ & amlodipine were held due to hyponatremia & vasodilation. SBP in 130-150. Will discharge pt with lisinopril. 2. Hyponatremia * Nephrology consult is appreciated. * Hypotonic serum Osm: 252, Low urine Osm: 103, urine Na: 25 (> 20mEq), likely due to decreased oral intake / thiazide use + SIADH. She was given 2L NS and 1L fluid restriction. * Repeat U osm 167, Na improved from 124 to 137, 13mEq/24 hrs, will give D5W and SC desmopression. * CXR negative, waiting renal artery US per nephrology. * Off fluid restriction today, will repeat NA at 1pm. 3. Hypokalemia/Hypomagnesemia * Resolved, K 4.6, Mg 2.2 today. 4. Anxiety * Psychiatry consult is appreciated. * alprazolam daily prn and gabapentin 100mg TID prn. * Thyroid function studies were normal. 7. Peripheral vascular disease * lipid profile shows low HDL 38 and normal LDL 94 * Will start aspirin Regular diet: liberalized sodium intake DVT prophylaxis: Lovenox 40 mg subcutaneous daily Full code Problem List: 1. Hyponatremia syndrome 2. Hypertension Pain Ratin Pain Location: NA Pain Goal: Pain 4 or less Pain Plan: tyrenol, percoet per pain pathway Tomorrow's Labs & Rationales: BEP: Na DVT/Prophylaxis: pharmacological Discharge Plan Stable for Discharge? No MARIANO CHAPA MD 10/28/16 1126: Attending MD Review Statement Attending Statement Attending MD Statement: examined this patient, discuss w/resident/PA/CORPORATE DEVELOPMENT MANAGER, agreed w/resident/PA/CORPORATE DEVELOPMENT MANAGER, reviewed EMR data (avail) Attending Assessment/Plan: 61F admitted for hypertension and sodium 122. Patient reprots depression and severe anxiety for the past week with decreased PO intake and loose stools, had been on Lisinopril and HCTZ, started Amlodipine by her PCP yesterday. No other symptoms, neuro exam normal. Given 2L normal saline yesterday, followed by fluid restriction. Sodium up to 137 today. No change in neurological status and neuro exam is normal. Patient has anxiety but is otherwise well. BP is controlled on Lisinopril. 1. Hyponatremia 2. Hypokalemia 3. Poor PO intake 4. Anxiety/depression 5. Hypertensive urgency (resolved) Plan - Stop fluid restriction, recheck sodium at 3pm - Follow up renal artery doppler - Nutrition consult - Psychiatry consult - Nephrology consult - Continue Lisinopril - DVT PPx - If sodium improves to 130-135, may be discharged home with outpatient nephrology and psychiatry follow up. Will continue only Lisinopril for BP.
[2016-10-28] MEDS ORDERED: GABAPENTIN100 M2 PO (09:05)
[2016-10-28] MEDS ORDERED: LISINOPRIL20 M1 PO (09:05)
[2016-10-28] MEDS ORDERED: ASPIRIN81 M4 PO (09:05)
--- NOTE | 2016-10-28 09:11 | Patient Discharge Instructions ---
Discharge Instructions General Discharge Information You were seen/treated for: Hyponatremia Hypokalemia Hypomagnesemia Hypertensive urgency Anxiety/depression You had these procedures: CXR Renal artery US Watch for these problems: Headache, blurred vision, nausea/vomiting, chest pain Special Instructions: Please follow up with a primary doctor within 1 week after discharge. Please follow up with Dr. Wilks for low Na level management and BEP check in 1-2 week. Please follow up with [facility]ry for anxiety/depression management Please continue fluid restriction 2L per day. Diet Continue normal diet: Yes Recommended Diet: Regular Limit DAILY fluid amt to mls: 2000 Additional DIET Information: Please continue 2L fluid restriction/day Activity Full Activity/No Limits: Yes Activity Self Limited: No Acute Coronary Syndrome Inclusion Criteria At DC or during hospital stay patient has or had the following: ACS DIAGNOSIS No Discharge Core Measures Meds if any: Prescribed or Continued at Discharge Meds if any: NOT Prescribed or Continued at Discharge Congestive Heart Failure Inclusion Criteria At DC or during hospital stay patient has or had the following: CHF DIAGNOSIS No Discharge Core Measures Meds if any: Prescribed or Continued at Discharge Meds if any: NOT Prescribed or Continued at Discharge Cerebrovascular accident Inclusion Criteria At DC or during hospital stay patient has or had the following: CVA/TIA Diagnosis No Discharge Core Measures Meds if any: Prescribed or Continued at Discharge Meds if any: NOT Prescribed or Continued at Discharge Venous thromboembolism Inclusion Criteria VTE Diagnosis No VTE Type NONE VTE Confirmed by (Test) NONE Discharge Core Measures - Per Current guidelines, there needs to be overlap - treatment for the first 5 days of Warfarin therapy. - If discharged on Warfarin prior to 5 days of - overlap therapy, the patient will need to be - assessed for post discharge needs including - *Post discharge parental anticoagulation - *Warfarin and/or parental anticoagulation education - *Follow up date to check INR post discharge At least 5 days overlap therapy as Inpatient No Meds if any: Prescribed or Continued at Discharge Note: Overlap Therapy is Warfarin and Anticoagulant Meds if any: NOT Prescribed or Continued at Discharge
--- NOTE | 2016-10-28 10:59 | ULTRASOUND REPORT ---
EXAMINATION: US RETROPERITONEAL COMPLETE (RENAL) US ABDOMEN ORGAN DOPPLER CLINICAL INFORMATION: Hyponatremia. Evaluate for renal artery stenosis. COMPARISON: None TECHNIQUE: Real-time sonographic imaging of the kidneys and bladder was performed. Also, triplex Doppler imaging of renal arteries was performed. FINDINGS: medical imaging technologist reports that the examination was suboptimal due to patient's body habitus. The visualized proximal and mid abdominal aorta is normal in caliber. The peak systolic velocity measured within the proximal aorta at the level of the renal arteries is 61 cm/sec. Right kidney, 12 cm in length, has normal cortical thickness and echotexture. No sonographic evidence of renal mass, nephrolithiasis or hydronephrosis. The proximal segment of the right renal artery cannot be visualized. The visible portion of the mid to-distal right renal artery has a peak systolic velocity of 58 cm/sec. At the renal hilum, the distal renal artery has a peak systolic velocity of 53 cm/sec. No evidence of a tardus-parvus waveform. Left kidney, 11.7 cm in length, has normal cortical thickness and echotexture. No evidence of renal mass, hydronephrosis or nephrolithiasis. The left renal artery cannot be visualized. The visible segment of the mid to-distal renal artery has a peak systolic velocity of 49 cm/sec. At the renal hilum, the distal renal artery has a peak velocity of 50 cm/sec. No tardus parvus waveform. Urinary bladder is moderately distended and has normal wall thickness. No evidence of bladder mass or bladder debris. IMPRESSION: 1. No evidence of nephrolithiasis or urinary tract obstruction. 2. Renal arteries are incompletely visualized. Within the visualized mid to-distal segments of each renal artery, there are no direct or indirect Doppler imaging findings to suggest presence of a hemodynamically significant renal artery stenosis.
--- NOTE | 2016-10-28 11:43 | PN- Nephrology ---
Assessment/Plan Assessment: Hyponatremia - Hypotonic hyponatremia. Appears euvolemic on exam. Urine osm had been low but not maximally dilute. No clear hemodynamic stimulus for ADH secretion. 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 Her issue is hopefully mild enough that cessation of the HCTZ may be enough. Overcorrected with fluid restriction (labs not checked overnight). Needs DDAVP and free water to bring Na level back down. HTN - Currently well controlled. Hypokalemia is at least in large part 2/2 diuretic and has improved. No evidence of BHAVESH. Checking now for renin/terri abnormalities. Suggestion: -DDAVP 2mcg x1 -1L D5W ~30 minutes after DDAVP dose -Goal is to bring Na down to 133 - if it gets to this level, she would be stable for discharge -Can lift free water restriction for today -Would stop HCTZ indefinitely and list as allergy -f/u renin, aldosterone -OK to cont amlodipine and lisinopril as you are - goal BP 120/80 -2L fluid restriction on discharge - should have f/u labs including BMP and urine osm - depending on labs, this may be lifted now that she is off the HCTZ Please call [phone] with ?'s Subjective Subjective: Na checked this AM - 137 (no check overnight) K 4.6, bicarb 31, SCr 0.8 AM Cortisol 16.4 Renin and terri pending UOsm 167 BP 150/92 this AM Renal doppler - incomplete visualization but neg on what could be seen R kidney 12cm and L kidney 11.7cm Chest x-ray without mass Objective Vital Signs and I&Os Vital Signs Date Time Temp Pulse Resp B/P Pulse O2 O2 Flow FiO2 Ox Delivery Rate 10/28 1112 78 150/92 / 0723 97.7 78 20 150/92 96 Room Air / 2243 98.5 70 20 142/80 94 Room Air 10/27 1722 98.5 63 20 130/70 95 Room Air 04/05 1232 144/80 04 1229 67 144/80 94 Room Air Intake & Output 10/28 1600 10/28 0400 10/27 1600 10/27 0400 10/26 1600 10/26 0400 Intake Total 480 1695 800 0 Output Total Balance 480 1695 800 0 Intake, IV 375 Intake, Oral 480 1320 800 0 Patient 240 lb 240 lb Weight Physical Exam: Gen - anxious HEENT - supple CV - RRR Chest - clear Abd - soft, nontender Ext - no edema Neuro - AOX3 Current Medications: Current Medications Sig/Hugh Start time Last Medication Dose Route Stop Time Status Admin Acetaminophen 650 MG Q6P PRN 10/26 1815 AC PO Alprazolam 0.5 MG DAILY NEEDED PRN 10/27 1615 AC PO 11/03 1600 Alprazolam 0.5 MG 2200 PRN 10/26 2200 DC PO 11/02 2159 Aspirin 81 MG DAILY 10/27 1027 AC 10/28 PO 1113 Desmopressin Acetate 2 MCG ONCE ONE 10/28 929 DC 10/28 IV 10/28 0931 1114 Dextrose/Water 1,000 ML .Q2H 10/28 0930 DC IV 10/28 1129 Enoxaparin Sodium 40 MG DAILY 10/26 181 AC 10/28 SC 1113 Gabapentin 100 MG Q8P PRN 10/27 1430 AC PO Lisinopril 40 MG DAILY 10/27 1100 AC 10/28 PO 1112 Magnesium Oxide 400 MG BID 10/27 2200 DC 10/27 PO 2145 Oxycodone/ 1 TAB Q6P PRN 10/26 181 AC Acetaminophen PO Oxycodone/ 2 TAB Q6P PRN 10/26 1815 AC Acetaminophen PO Sodium Chloride 1,000 ML Q13H 10/27 0930 DC 10/27 IV 10/27 2229 0948 Results Pertinent Lab Results: Laboratory Tests 10/28 10/28 10/28 10/27 0700 0700 0250 0610 Chemistry Sodium (137 - 145 mmol/L) 137 124 L Potassium (3.5 - 5.1 mmol/L) 4.6 4.3 Chloride (98 - 107 mmol/L) 99 88 L Carbon Dioxide (22 - 30 mmol/L) 31 H 28 Anion Gap (5 - 16) 6 9 BUN (7 - 17 mg/dL) 16 15 Creatinine (0.5 - 1.0 mg/dL) 0.8 0.8 Estimated GFR (>60 ml/min) > 60 > 60 BUN/Creatinine Ratio (7 - 25 %) 20.0 18.8 Serum Osmolality (285 - 295 MOSM/KG) 267 L Magnesium (1.6 - 2.3 mg/dL) 2.2 1.8 Triglycerides (<150 mg/dL) 131 Cholesterol (<200 MG/DL) 158 LDL Cholesterol, Calc (65 - 129 mg/dL) 94 HDL Cholesterol (40 - 60 mg/dL) 38 L Cholesterol/HDL Ratio (0.00 - 4.23 %) 4 Renin Pending Aldosterone Pending TSH (0.270 - 4.200 uIU/mL) 1.740 Free T4 (0.78 - 2.44 ng/dL) 1.46 Cortisol AM Sample (4.46 - 22.7 ug/dL) 16.4 Hematology CBC w Diff NO MAN DIFF REQ WBC (4.8 - 10.8 /CUMM) 9.8 RBC (4.20 - 5.40 /CUMM) 4.06 L Hgb (12.0 - 16.0 G/DL) 12.5 Hct (37 - 47 %) 36.6 L MCV (81.0 - 99.0 FL) 90.1 MCH (27.0 - 31.0 PG) 30.7 RDW (11.5 - 14.5 %) 13.3 Plt Count (130 - 400 /CUMM) 244 MPV (7.4 - 10.4 FL) 9.2 Gran % (42.2 - 75.2 %) 61.8 Lymphocytes % (20.5 - 51.1 %) 30.3 Monocytes % (1.7 - 9.3 %) 5.6 Eosinophils % (0 - 5 %) 1.7 Basophils % (0.0 - 2.0 %) 0.6 Absolute Granulocytes (1.4 - 6.5 /CUMM) 6.0 Absolute Lymphocytes (1.2 - 3.4 /CUMM) 3.0 Absolute Monocytes (0.10 - 0.60 /CUMM) 0.6 Absolute Eosinophils (0.0 - 0.7 /CUMM) 0.2 Absolute Basophils (0.0 - 0.2 /CUMM) 0.1 PUBS MCHC (33.0 - 37.0 G/DL) 34.1 Urines Urine Osmolality (300 - 1000 MOSM/KG) 167 L Ur Random Creatinine (mg/dL) 33.1 Ur Random Sodium (30 - 90 mmol/L) 18 L Ur Random Potassium (mmol/L) 13.4 Fraction Sodium Excret (<1% %) 0.4 10/26 10/26 10/26 2259 1545 1545 Chemistry Sodium (137 - 145 mmol/L) 123 L Potassium (3.5 - 5.1 mmol/L) 3.5 Chloride (98 - 107 mmol/L) 85 L Carbon Dioxide (22 - 30 mmol/L) 30 Anion Gap (5 - 16) 8 BUN (7 - 17 mg/dL) 12 Creatinine (0.5 - 1.0 mg/dL) 1.0 Estimated GFR (>60 ml/min) 56 L BUN/Creatinine Ratio (7 - 25 %) 12.0 Toxicology Urine Opiates Screen (>2000 NG/ML) < 100.00 Methadone Screen (>300 NG/ML) < 40 Barbiturate Screen (>200 NG/ML) < 60 Ur Phencyclidine Scrn (>25 NG/ML) < 6.00 Amphetamines Screen (>1000 NG/ML) < 100 U Benzodiazepines Scrn (>200 NG/ML) < 85 Urine Cocaine Screen (>300 NG/ML) < 50 Urine Cannabis Screen (>50 NG/ML) < 5.00 Urines Urine Color (YEL,AMB,STR) STRAW Urine Clarity (CLEAR) CLEAR Urine pH (5.0 - 8.0) 6.0 Ur Specific [place] (1.001 - 1.035) <= 1.005 Urine Protein (NEG,<30 MG/DL) NEG Urine Ketones (NEG) NEG Urine Nitrite (NEG) NEG Urine Bilirubin (NEG) NEG Urine Urobilinogen (0.1 - 1.0 EU/dl) 0.2 Ur Leukocyte Esterase (NEG) NEG Ur Microscopic SEDIMENT EXAMINED Urine RBC (0 - 5 /HPF) RARE Urine WBC (0 - 2 /HPF) RARE Ur Epithelial Cells (NONE,FEW) RARE Urine Bacteria (NEG/NONE) RARE H Urine Hemoglobin (NEG) MOD H Urine Osmolality (300 - 1000 MOSM/KG) 103 L Ur Random Creatinine (mg/dL) 12.0 Ur Random Sodium (30 - 90 mmol/L) 25 L Ur Random Potassium (mmol/L) 4.1 Fraction Sodium Excret (<1% %) 1.2 H Urine Glucose (N MG/DL) NEG 10/26 1434 Chemistry Sodium (137 - 145 mmol/L) 122 L Potassium (3.5 - 5.1 mmol/L) 3.2 L Chloride (98 - 107 mmol/L) 82 L Carbon Dioxide (22 - 30 mmol/L) 27 Anion Gap (5 - 16) 13 BUN (7 - 17 mg/dL) 10 Creatinine (0.5 - 1.0 mg/dL) 0.7 Estimated GFR (>60 ml/min) > 60 BUN/Creatinine Ratio (7 - 25 %) 14.3 Glucose (65 - 99 mg/dL) 152 H Serum Osmolality (285 - 295 MOSM/KG) 252 L Calcium (8.4 - 10.2 mg/dL) 9.6 Phosphorus (2.5 - 4.5 mg/dL) 3.0 Magnesium (1.6 - 2.3 mg/dL) 1.5 L Total Bilirubin (0.2 - 1.3 mg/dL) 1.9 H AST (14 - 36 U/L) 29 ALT (9 - 52 U/L) 49 Alkaline Phosphatase (<127 U/L) 70 Troponin I (< 0.11 ng/ml) < 0.01 Total Protein (6.3 - 8.2 g/dL) 7.7 Albumin (3.5 - 5.0 g/dL) 4.1 Globulin (1.9 - 4.2 gm/dL) 3.6 Albumin/Globulin Ratio (1.1 - 2.2 %) 1.1 TSH &T3 &Free T4 Intrp (0.270 - 4.20 uIU/mL) 0.946 Hematology CBC w Diff NO MAN DIFF REQ WBC (4.8 - 10.8 /CUMM) 12.6 H RBC (4.20 - 5.40 /CUMM) 4.39 Hgb (12.0 - 16.0 G/DL) 13.4 Hct (37 - 47 %) 39.2 MCV (81.0 - 99.0 FL) 89.2 MCH (27.0 - 31.0 PG) 30.5 RDW (11.5 - 14.5 %) 13.3 Plt Count (130 - 400 /CUMM) 270 MPV (7.4 - 10.4 FL) 8.3 Gran % (42.2 - 75.2 %) 73.7 Lymphocytes % (20.5 - 51.1 %) 21.0 Monocytes % (1.7 - 9.3 %) 4.4 Eosinophils % (0 - 5 %) 0.5 Basophils % (0.0 - 2.0 %) 0.4 Absolute Granulocytes (1.4 - 6.5 /CUMM) 9.2 H Absolute Lymphocytes (1.2 - 3.4 /CUMM) 2.6 Absolute Monocytes (0.10 - 0.60 /CUMM) 0.6 Absolute Eosinophils (0.0 - 0.7 /CUMM) 0.1 Absolute Basophils (0.0 - 0.2 /CUMM) 0.1 PUBS MCHC (33.0 - 37.0 G/DL) 34.2 Imaging/Other Studies: EXAMINATION: US RETROPERITONEAL COMPLETE (RENAL) US ABDOMEN ORGAN DOPPLER CLINICAL INFORMATION: Hyponatremia. Evaluate for renal artery stenosis. COMPARISON: None TECHNIQUE: Real-time sonographic imaging of the kidneys and bladder was performed. Also, triplex Doppler imaging of renal arteries was performed. FINDINGS: environmental health technologist reports that the examination was suboptimal due to patient's body habitus. The visualized proximal and mid abdominal aorta is normal in caliber. The peak systolic velocity measured within the proximal aorta at the level of the renal arteries is 61 cm/sec. Right kidney, 12 cm in length, has normal cortical thickness and echotexture. No sonographic evidence of renal mass, nephrolithiasis or hydronephrosis. The proximal segment of the right renal artery cannot be visualized. The visible portion of the mid to-distal right renal artery has a peak systolic velocity of 58 cm/sec. At the renal hilum, the distal renal artery has a peak systolic velocity of 53 cm/sec. No evidence of a tardus-parvus waveform. Left kidney, 11.7 cm in length, has normal cortical thickness and echotexture. No evidence of renal mass, hydronephrosis or nephrolithiasis. The left renal artery cannot be visualized. The visible segment of the mid to-distal renal artery has a peak systolic velocity of 49 cm/sec. At the renal hilum, the distal renal artery has a peak velocity of 50 cm/sec. No tardus parvus waveform. Urinary bladder is moderately distended and has normal wall thickness. No evidence of bladder mass or bladder debris. IMPRESSION: 1. No evidence of nephrolithiasis or urinary tract obstruction. 2. Renal arteries are incompletely visualized. Within the visualized mid to-distal segments of each renal artery, there are no direct or indirect Doppler imaging findings to suggest presence of a hemodynamically significant renal artery stenosis. EXAM TYPE: RAD - XRY-CHEST XRAY, PA AND LATERAL EXAMINATION: XR CHEST CLINICAL INFORMATION: Hyponatremia. Concern for lung mass. COMPARISON: None TECHNIQUE: 2 views of the chest were obtained. FINDINGS: Lungs are clear. No pulmonary vascular congestion. No infiltrate or pleural effusion. The heart size is normal. The cardiac and mediastinal contours are normal. There are multilevel degenerative changes of dorsal spine. IMPRESSION: Unremarkable examination.
--- NOTE | 2016-10-28 13:17 | Discharge Summary ---
Visit Information Visit Dates Admission Date: 10/26/16 Discharge Date: 10/28/16 Hospital Course Course Attending Physician: MARIANO CHAPA MD Primary Care Physician: ESSENCE STEINER,LANDEN Farmer Consulting Request: Consulting Specialty: Nephrology Consulting Physician: Dr. Wilks Reason for Consult: Hyponatremia Hospital Course: 61-year-old lady with a PMH of HTN noncompliant on medication, peripheral vascular disease complicated with left lower extremity ulcer, anxiety presented with a chiec complaint of facial flushing. She was taking HCTZ and lisinopril, but she was not compliant with medications. During her recent visit to her PCP( Dr. Sarah), SBP was noted to be in the 180s for which she was started on amlodipine 5 mg daily on 10/25/16. She reported taking 2 doses of amlodipine and woke up on the day of admission with her face flushed. She also endorsed family stressors that are causing her excessive anxiety. She has intermittent headaches whenever her blood pressure is elevated, difficulty sleeping, decrease in oral intake over the past 10 days, 2 episodes of diarrhea, sadness, loss of interest in certain activities, guilty feeling, lack of energy and inability to concentrate. Inivial V/S: 97.7F [place] 64 RR 16 BP 190/77, 97% on RA On exam, General Appearance Alert, Cooperative, Slighty anxious appearing Skin DIstal left leg appears to have chronic venous insufficency changes HEENT EOMI, Mucous Membr. moist/pink Cardiovascular Regular Rate, Normal S1, Normal S2 Lungs Clear to Auscultation, Normal Air Movement Abdomen Normal Bowel Sounds, Soft, No Tenderness Neurological Normal Speech, Normal Tone, Sensation Intact Extremities Normal Pulses, 1+ pitting edema BL LE Vascular Pulses Symmetrical Labs: WBC 12.6, Hb/Hct 13.4/39.2, Na 122, K 3.2, Mg 1.5, BUN/Cr 10/0.7, Serum Osm 252, Urine Osm 103, Urine Na 25, Urine K 4.1, FeNa 1.2 EKG: Sinus tachycardia, HR 105. KY interval 170. QTC 476 Patient was admitted for following problem lists; 1. Hypertensive urgency: SBP was decreased to 110s after po xanax and IV NS. Ambulatory SBP was checked at 140s as she c/o pounding sensation in head. Her BP was well controlled with po lisinopril 40mg daily. HCTZ & amlodipine were held due to hyponatremia & possible vasodilation. She'll be discharged with po lisinopril 40mg qd and follow up with her primary doctor. 2. Hypotonic hyponatremia: Patient appeared to be euvolemic. Likely secondary to decreased oral intake / thiazide use with possible underlying SIADH. Na was improved from 122 to 124 after 1L of IV NS on 10/27. Nephrology consult was obatined from Dr. Wilks. She was given one more liter of NS and fluid was restriced to 1L/d. Her diet was changed to regular diet with liberazling Na intake. CXR didn't show any lung mass for possible SIADH, and there was no renal artery stenosis from US. Na was increased to 137 on 10/28 (correction 13mEq / 24 hrs). Urine Osm was increased to 167. IV desmopressin 2mcg and D5W 1L were given. Na went down to 135. Patient will be discharged with instruction of 2L fluid restriction, she'll follow up with Dr. Wilks. 3. Hypokalemia/hypomagnesemia: Likely secondary to thiazide diuretics. K 3.5 improved to 4.6 after supplement. Mg 1.5 to 2.2. 4. Anxiety/depression: Psychiatry consult was obtained regarding depression and anxiety. No SSRIs/SNRIs were recommended until hyponatremia is resolved. She started on po gabapentin 100mg TID prn and alprazolam 0.5mg qd prn for anxiety. She will get a referral to Outpatient Psychiatry for evaluation and treatment of depression and anxiety. 5. Peripheral vascular disease: lipid profile showed low HDL 38 and normal LDL 94. PO aspirin 81mg daily was started. Regular diet: liberalized sodium intake, fluid restriction 2L/d DVT prophylaxis: Lovenox 40 mg subcutaneous daily Full code Allergies: Coded Allergies: hydrochlorothiazide (Hyponatremia 10/28/16) Significant Procedures: CXR: Unremarkable examination. Renal artery US 1. No evidence of nephrolithiasis or urinary tract obstruction. 2. Renal arteries are incompletely visualized. Within the visualized mid to-distal segments of each renal artery, there are no direct or indirect Doppler imaging findings to suggest presence of a hemodynamically significant renal artery stenosis. Pertinent Lab Results: Na: 122 -> 124 -> 137 -> 135 on 4/6/17 Disposition Summary Disposition Principal Diagnosis: Hypotonic hyponatremia likely secondary to SIADH and thiazide diuretics Hypokalemia, resolved Hypomagnesemia, resolved Hypertensive urgency, resolved Anxiety/depression Additional Diagnosis: Peripheral vascular disease Discharge Disposition: home or self care Discharge Instructions General Discharge Information Code Status: Full Code Patient's Diet: Regular diet, liberalize salt intake Fluid restriction 2L/d Patient's Activity: Increase as tolerated Follow-Up Instructions/Appts: 1. Please follow up with a primary doctor within 1 week after discharge. 2. Please follow up with Dr. Wilks for low Na level management and BEP check in 1-2 week. 3. Please follow up with [facility] outpatient psychiatry for anxiety/depression management 4. Please continue IV fluid restriction 2L per day. Medications at Discharge Discharge Medications: Stop taking the following medications: Lisinopril (Lisinopril) 20 MG TABLET ORAL Every other day Qty = 30 Lisinopril/Hydrochlorothiazide (Lisinopril-Hctz 20-25 MG Tab) 20 MG-25 MG TABLET ORAL Every other day Qty = 60 Amlodipine Besylate (Amlodipine Besylate) 5 MG TABLET ORAL DAILY Qty = 30 Start taking the following new medications: Lisinopril (Lisinopril) 20 MG TABLET 40 Milligram ORAL DAILY Qty = 30 No Refills Comments: LAST TAKEN 10/28/16 11:15 AM Aspirin (Aspirin*) 81 MG TAB.CHEW 81 Milligram ORAL DAILY Qty = 30 No Refills Comments: LAST TAKEN: 10/28/16 11:15 AM Gabapentin (Gabapentin) 100 MG CAPSULE 100 Milligram ORAL EVERY 8 HOURS NEEDED as needed for ANXIETY Qty = 60 No Refills Comments: NOT GIVEN IN HOSP Copies To: SAMMI STEINER,MARIANO; BOB STEINER,EMELI Hurley; AURORA GABRIEL APRN; HERNANDEZ NOVA,CRISTHIAN Guan
[2016-10-28 14:08] VITALS: BP 100/60
[2016-10-28 15:20] VITALS: BP 140/68
[2016-10-28 16:36] VITALS: BP 154/74
== END 2016-10-28 17:35 | DRG 645 ==
LOC: ENRESERVTM → ENRESERVDT → ERH 12:32 → 1NO 15:32 → ERHI 15:32 → 1NO 17:07 → 2NA 10-27 21:04
PROVIDERS: Emergency Medicine; Internal Medicine; ADMIT Internal Medicine
DX: E22.2 Syndrome of inappropriate secretion of antidiuretic hormone (principal); E83.42 Hypomagnesemia; E87.8 Other disorders of electrolyte and fluid balance, not elsewhere classified; I16.0 Hypertensive urgency; E87.6 Hypokalemia; F41.9 Anxiety disorder, unspecified; I73.9 Peripheral vascular disease, unspecified; F32.9 Major depressive disorder, single episode, unspecified; I87.2 Venous insufficiency (chronic) (peripheral)
CPT/HCPCS: 1NSP; 2NASP; 84133; 84300; 36415; 76775; 80307; 81001; 82436; 82570; 93005; 93010; 99232; J1650; J2597; J3490